=== PATIENT | male | born 1950 | race Caucasian/White ===

== ENCOUNTER 2017-08-29 07:23 | Day surgery (SDC) | payer BC ==
[~2017-08-29 07:23] MED LIST: Acetaminophen TAB* 325 MG PO PRN; Buffered Lidocaine 0.9% SYRIN* 5 ML/SYR SYRINGE INTRADERM ONE
[2017-08-29] MEDS ORDERED: Midazolam* 1 MG/ML 2 ML VIAL (2 MG) ONE ×2 (09:32→09:37)
[2017-08-29 10:14] VITALS: BP 119/65
[2017-08-29] MEDS ORDERED: Phenylephrine 2.5% OPTH.SOL* 2 ML BTL ONE (15:00)
[2017-08-29] MEDS ORDERED: Neomycin/Polymy/Dex OPTH.SUSP* MAXITROL 0.1% 5 ML ONE (15:00)
[2017-08-29] MEDS ORDERED: Ketorolac 0.5% OPHTH (NF) 0.5 % 5 ML BTL ONE (15:00)
[2017-08-29] MEDS ORDERED: Lidocaine 2% EPI 1:200000 MPF* 20 ML VIAL ONE (15:00)
[2017-08-29] MEDS ORDERED: Lidocaine 1% MPF* 2 ML VIAL ONE (15:00)
[2017-08-29] MEDS ORDERED: Cyclopentolate 1% OPTH.SOL* 2 ML BTL ONE (15:00)
[2017-08-29] MEDS ORDERED: Buffered Lidocaine 0.9% SYRIN* 5 ML/SYR SYRINGE ONE (15:00)
[2017-08-29] MEDS ORDERED: Povidone Iodine 5% OPTH* 30 ML BTL ONE (15:00)
[2017-08-29] MEDS ORDERED: Proparacaine 0.5% OPHTH.SOL* 15 ML BTL ONE (15:00)
[2017-08-29] MEDS ORDERED: acetaZOLAMIDE TAB* 250 MG ONE (15:00)
--- NOTE | 2017-08-30 01:30 | OP ---
DATE OF OPERATION: 08/29/17 [facility] DATE OF : 46 SURGEON: Rosalino Tate M.D. PREOPERATIVE DIAGNOSIS: Cataract, right eye. POSTOPERATIVE DIAGNOSIS: Cataract, right eye. OPERATIVE PROCEDURE: Phacoemulsification, right eye with IOL. DESCRIPTION OF PROCEDURE: The patient was brought to the operating room after being given 1/2% Alcaine with epinephrine drops in the preoperative area. The eye was prepped and draped in the usual sterile fashion. Sterile drape and eyelid speculum were placed. Again, topical 1/2% Alcaine with epinephrine was given. A paracentesis incision was made at the 9 o'clock position with the No.75 blade. Clear cornea incision 2.2 x 2.2-mm was created at the 12 o'clock position starting at the anterior limbus using the 2.2-mm keratome. The anterior chamber was irrigated with 0.4 mL of 1% non-preservative intracameral lidocaine and filled with DisCoVisc. A capsulorrhexis was completed using the cystotome and the Utrata forceps. Hydrodissection was performed with balanced salt solution. The lens nucleus was removed with the Phacoemulsification handpiece without incident. Cortex was removed with the irrigation-aspiration handpiece. The capsular bag was re-inflated using DisCoVisc and an [id number] implant was inserted with the shooter. The irrigation-aspiration handpiece was used to remove all residual DisCoVisc. The eye was refilled with balanced salt solution and the wound checked and found to be watertight. Topical Maxitrol drops were given. [id number]/[facility] #: [id number] MTDD
== END 2017-08-29 10:09 | disposition home or self-care (01) ==
LOC: OREAST 07:23
PROVIDERS: ATTEND Specialist
DX: H25.11 Age-related nuclear cataract, right eye (principal); H04.123 Dry eye syndrome of bilateral lacrimal glands; I25.10 Atherosclerotic heart disease of native coronary artery without angina pectoris; Z95.5 Presence of coronary angioplasty implant and graft; I10 Essential (primary) hypertension; E78.5 Hyperlipidemia, unspecified; M54.5 Low back pain; Z79.899 Other long term (current) drug therapy; Z85.72 Personal history of non-Hodgkin lymphomas
CPT/HCPCS: A9270-GY; J2250; V2632

== ENCOUNTER → 2017-09-12 09:06 | Day surgery (SDC) | payer BC ==
[~2017-09-12 09:06] MED LIST changes: -Acetaminophen TAB* 325 MG PO PRN; +Buffered Lidocaine 0.9% SYRIN* 5 ML/SYR SYRINGE ONE; +Cyclopentolate 1% OPTH.SOL* 2 ML BTL ONE; +Ketorolac 0.5% OPHTH (NF) 0.5 % 5 ML BTL ONE; +Lidocaine 1% MPF* 2 ML VIAL ONE; +Lidocaine 2% EPI 1:200000 MPF* 20 ML VIAL ONE; +Lidocaine 2% PF * 5 ML VIAL ONE; +Neomycin/Polymy/Dex OPTH.SUSP* MAXITROL 0.1% 5 ML ONE; +Phenylephrine 2.5% OPTH.SOL* 2 ML BTL ONE; +Povidone Iodine 5% OPTH* 30 ML BTL ONE; +Proparacaine 0.5% OPHTH.SOL* 15 ML BTL ONE; +Propofol* 10 MG/ML 20 ML BTL IV PUSH ONE; +acetaZOLAMIDE TAB* 250 MG ONE
[2017-09-12 12:11] VITALS: BP 127/70
--- NOTE | 2017-09-13 04:35 | OP ---
DATE OF OPERATION: 09/12/17 [facility] DATE OF : 46 SURGEON: Rosalino Tate M.D. PREOPERATIVE DIAGNOSIS: Cataract, left eye. POSTOPERATIVE DIAGNOSIS: Cataract, left eye. OPERATIVE PROCEDURE: Extracapsular cataract extraction with intraocular lens implant, left eye. DESCRIPTION OF PROCEDURE: The patient was brought to the operating room after being given 1/2% Alcaine with epinephrine drops in the preoperative area. The eye was prepped and draped in the usual sterile fashion. Sterile drape and eyelid speculum were placed. Again, topical 1/2% Alcaine with epinephrine was given. A paracentesis incision was made at the 3 o'clock position with the No.75 blade. Clear cornea incision 2.2 x 2.2-mm was created at the 6 o'clock position starting at the anterior limbus using the 2.2-mm keratome. The anterior chamber was irrigated with 0.4 mL of 1% non-preservative intracameral lidocaine and filled with DisCoVisc. A capsulorrhexis was completed using the cystotome and the Utrata forceps. Hydrodissection was performed with balanced salt solution. The lens nucleus was removed with the Phacoemulsification handpiece without incident. Cortex was removed with the irrigation-aspiration handpiece. The capsular bag was re-inflated using DisCoVisc and an [id number] implant was inserted with the shooter. The irrigation-aspiration handpiece was used to remove all residual DisCoVisc. The eye was refilled with balanced salt solution and the wound checked and found to be watertight. Topical Maxitrol drops were given. [id number]/[facility] #: [id number] [facility]
== END | disposition home or self-care (01) ==
LOC: OREAST 09:06
PROVIDERS: ATTEND Specialist
DX: H25.12 Age-related nuclear cataract, left eye (principal); I10 Essential (primary) hypertension; E78.00 Pure hypercholesterolemia, unspecified; G89.29 Other chronic pain; M54.9 Dorsalgia, unspecified
CPT/HCPCS: A9270-GY; J2704; V2632

== ENCOUNTER 2017-12-05 10:41 | Day surgery (SDC) | payer BC ==
[~2017-12-05 10:41] MED LIST changes: -Buffered Lidocaine 0.9% SYRIN* 5 ML/SYR SYRINGE ONE; -Cyclopentolate 1% OPTH.SOL* 2 ML BTL ONE; -Ketorolac 0.5% OPHTH (NF) 0.5 % 5 ML BTL ONE; -Lidocaine 1% MPF* 2 ML VIAL ONE; -Lidocaine 2% EPI 1:200000 MPF* 20 ML VIAL ONE; -Lidocaine 2% PF * 5 ML VIAL ONE; -Neomycin/Polymy/Dex OPTH.SUSP* MAXITROL 0.1% 5 ML ONE; -Phenylephrine 2.5% OPTH.SOL* 2 ML BTL ONE; -Povidone Iodine 5% OPTH* 30 ML BTL ONE; -Proparacaine 0.5% OPHTH.SOL* 15 ML BTL ONE; -Propofol* 10 MG/ML 20 ML BTL IV PUSH ONE; -acetaZOLAMIDE TAB* 250 MG ONE
[2017-12-05] MEDS ORDERED: Buffered Lidocaine 0.9% SYRIN* 5 ML/SYR SYRINGE ONE (11:09)
[2017-12-05] MEDS ORDERED: Clindamycin 900 MG IVPREMIX(* 900 MG/50 ML SDV IV ONE (11:09)
[2017-12-05] MEDS ORDERED: Lidocaine 1% INJ* 10 MG/ML 30 ML SDV ONE (11:21)
[2017-12-05] MEDS ORDERED: Gentamicin ADULT (*) 40 MG/ML VIAL ONE (11:21)
[2017-12-05] MEDS ORDERED: Bacitracin IV* 50,000 UNITS INJ ONE (11:22)
[2017-12-05] MEDS ORDERED: Vancomycin(*) 1,000 MG VIAL ONE (11:22)
[2017-12-05] MEDS ORDERED: ceFAZolin 1 GM VIAL(*) ONE (11:22)
[2017-12-05] MEDS ORDERED: Bupivacaine 0.25% SDV* 30 ML ONE (11:22)
[2017-12-05] MEDS ORDERED: fentaNYL* 50 MCG/ML 2 ML VIAL (100 MCG VIAL) ONE (11:41)
[2017-12-05] MEDS ORDERED: Midazolam* 1 MG/ML 2 ML VIAL (2 MG) ONE (11:41)
[2017-12-05] MEDS ORDERED: Ciprofloxacin 400MG IVPREMIX(* 400 MG/200 ML BAG ONE (11:42)
[2017-12-05] MEDS ORDERED: Propofol* 10 MG/ML 20 ML BTL IV PUSH ONE (12:41)
[2017-12-05] MEDS ORDERED: Phenylephrine INJ* 10 MG/ML 1 ML VIAL (10 MG) ONE (12:52)
[2017-12-05] MEDS ORDERED: Naloxone* 0.4 MG/ML 1 ML VIAL IV PRN (14:37)
[2017-12-05] MEDS ORDERED: fentaNYL* 50 MCG/ML 2 ML VIAL (100 MCG VIAL) IV PRN (14:37)
[2017-12-05 14:49] VITALS: BP 105/65
--- NOTE | 2017-12-05 16:37 | RAD ---
INDICATION: Dorsal column stimulator removal COMPARISON: None FINDINGS: 5.3 seconds of fluoroscopy were provided for the anesthesiology department. Fluoroscopic spot imaging of the spine were obtained for operative control. CPT II Codes: 6045F (fluoro time doc)
--- NOTE | 2017-12-06 10:50 | OP ---
DATE OF OPERATION: 12/05/17 [facility] DATE OF : 46 SURGEON: Ari Martínez MD. PARADI TENDER: None. PRE-OP DIAGNOSIS: Failed back syndrome. POST-OP DIAGNOSIS: Failed back syndrome. OPERATIVE PROCEDURE: Removal of dorsal column stimulator IPG, leads, and anchors. ESTIMATED BLOOD LOSS: Less than 50 cc. FLUIDS: Lactated Ringer's 850 cc of. SPECIMENS: Dorsal column stimulator IPG, leads, and anchors. 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 The patient underwent permanent dorsal column stimulator placement approximately 2 years ago. Initially had good symptomatic relief with this stimulator; however, it stopped working after about a year to a year and a half. He underwent more surgery back in September 2017 for an L3-4 extraforaminal disk herniation. He has been doing better, and since he is not using the dorsal column stimulator, had wanted it to be removed. He was also having pain at the midline incision where the anchors were placed. I had a chance to discuss with the patient the risks, the benefits, and alternatives to therapy and talked to him about the risks of infection, bleeding with surgery, and informed consent was obtained. DESCRIPTION OF PROCEDURE: The patient was brought to the operating suite, placed prone on the operating room table. His back was prepped and draped in the usual sterile fashion. I anesthetized the skin and subcutaneous tissues over the midline area where the leads and anchors were placed as well as over the IPG pocket with 1% lidocaine mixed with 0.25% Marcaine. A 15 skin blade was used to incise the skin overlying the IPG in the area of the prior incision. I dissected down using a 15 scalpel blade and entered the pocket. I was able to use blunt dissection to free up the IPG and it was removed from the pocket. I cut the leads going into the IPG and placed it on the back table. Hemostasis was obtained with electrocautery. The wound was packed with irrigant soaked sponges. I then made an incision over the midline using a 15 scalpel blade. I dissected down using the scalpel and electrocautery to identify the two anchors. The anchoring sutures were cut on both anchors and the leads and anchors were removed in their entirety. Fluoroscopy was then used to confirm removal of all components of the dorsal column stimulator system including the leads, anchors, and IPG. There was a quite a bit of scar tissue over where the anchors had been placed and I used electrocautery to remove as much scar tissue that I could because the patient was concerned about the bump that he was feeling through his skin in his back when he sat in his chair. The wound was then irrigated copiously with irrigant. Electrocautery was used for hemostasis. I then focused on closing the pocket, the space within the pocket was closed using interrupted 2-0 Polysorb sutures. The deep tissues were then closed using interrupted 2-0 Polysorb sutures followed by interrupted 3-0 Polysorb sutures in a more superficial closure. A 4-0 Polysorb subcuticular stitch was used to close the skin. I then confirmed hemostasis in the midline incision using electrocautery, irrigated the wound copiously, and closed the deep tissues with 2-0 Polysorb suture followed by interrupted 3-0 Polysorb suture more superficially. A running 4-0 Polysorb suture was used to close the skin. The wound was infiltrated with 1% lidocaine mixed with 0.25% Marcaine and I infiltrated the IPG incision with 1% lidocaine and 0.25% Marcaine as well. DermaFlex was used over both incisions followed by Steri- Strips and sterile dressings were applied. The patient will follow up in the office in 10 to 14 days for followup. [id number]/[facility] #: [id number] [place]
== END 2017-12-05 14:50 | disposition home or self-care (01) ==
LOC: OR 10:41
PROVIDERS: ATTEND Anesthesiology Pain Medicine
DX: T85.840A Pain due to nervous system prosthetic devices, implants and grafts, initial encounter (principal); Y83.1 Surgical operation with implant of artificial internal device as the cause of abnormal reaction of the patient, or of later complication, without mention of misadventure at the time of the procedure; M96.1 Postlaminectomy syndrome, not elsewhere classified; I25.10 Atherosclerotic heart disease of native coronary artery without angina pectoris; Z95.5 Presence of coronary angioplasty implant and graft; I25.2 Old myocardial infarction; Z85.72 Personal history of non-Hodgkin lymphomas; F32.9 Major depressive disorder, single episode, unspecified
CPT/HCPCS: 77003; 88300; A9270-GY; J0690; J0744; J1580; J2250; J2704; J3010; J3370

== ENCOUNTER → 2019-05-16 12:56 | Emergency (ER) | payer BC, MEDICARE ==
--- NOTE | 2019-05-16 13:43 | ED ---
HPI Chest Pain - HPI Summary HPI Summary: The patient is a 69 y/o M presenting to [facility] accompanied by with a chief complaint of sudden onset CP at 1145 this morning. He reports that the pain is anterior bilaterally and doesnt radiate. He also took his BP at the time, and it was 180/95, but his usual SBP is 130. He states that there were not any palpitations, weakness, or diaphoresis present at the time, but he did take ASA and one NTG, which caused him to experience some dizziness (resolved), although the medications helped decreased his SBP to 135 and alleviate the CP. Currently , his dull pain is rated 2/10 in severity. He states that he isnt sure if the pain is the same as when he had an LA five years ago, but he also didnt have any palpitations, weakness, or diaphoresis at that time either. He denies any fever, chills, erythema of eyes, sore throat, pain with breathing, SOB, cough, abdominal pain, N/V, dysuria, hematuria, myalgia, edema, or rash. He notes that he had a steroid injection for pain three days ago, and he has previously noticed that the shots elevate his BP. Last stress test was a few years ago. Takes one baby ASA every day. PMHx: angina, CAD, HTN, LA 5 years ago with stent placement, asthma, GERD, enlarged prostate, lymphosarcoma, multiple back surgeries, multiple knee surgeries. Nonsmoker, no EtOH, no substance use. PCP is Dr. Argueta. Tool Distributor is Dr. Contreras. - History of Current Complaint Chief Complaint: EDChestPainROMI Time Seen by Provider: 05/16/19 13:32 Hx Obtained From: Patient Onset/Duration: Started Hours Ago - at 1145, Still Present Timing: Lasting Hours Initial Severity: Moderate Current Severity: Mild Pain Intensity: 2 Pain Scale Used: 0-10 Numeric Chest Pain Location: Left Anterior, Right Anterior Chest Pain Radiates: No Character: Dull/Aching Aggravating Factor(s): Nothing Alleviating Factor(s): Other: - ASA, NTG Associated Signs and Symptoms: Positive: Chest Pain, Dizziness - resolved, Other : - NEGATIVE: erythema of eyes, sore throat, pain with breathing, dysuria, hematuria, myalgia, rash. Negative: Weakness, Shortness of Breath, Fever, Chills, Diaphoresis, Nausea, Palpitations, Cough, Abdominal Pain, Vomiting, Edema - Allergy/Home Medications Allergies/Adverse Reactions: Allergies Allergy/AdvReac Type Severity Reaction Status Date / Time amoxicillin Allergy Mild Rash Verified 05/16/19 13:04 TEGADERM DRESSING Allergy Severe Blisters Uncoded 05/16/19 13:04 eggplant Allergy Intermediate Nausea Uncoded 05/16/19 13:04 ENVIRONMENTAL/HAYFEVER Allergy Intermediate WHEEZE Uncoded 05/16/19 13:04 Home Medications: Home Medications Garlic [Odorless Garlic] 300 mg PO QAM 05/16/19 [History Confirmed 05/16/19] Multivitamins/Minerals TAB* [Theragran/minerals TAB*] 1 tab PO DAILY 05/16/19 [ History Confirmed 05/16/19] Nitroglycerin TAB 0.4 MG* 0.4 mg SL Q5M PRN 05/16/19 [History Confirmed 05/16/19 ] Ubidecarenone [Co Q-10] 100 mg PO BID 05/16/19 [History Confirmed 05/16/19] PMH/Surg Hx/FS Hx/Imm Hx Endocrine/Hematology History: Reports: Hx Anticoagulant Therapy - Presently as of 12/25/14 visit he is on anticoagulant therapy Denies: Hx Diabetes, Hx Anemia Cardiovascular History: Reports: Hx Angina - NONE SINCE HAVING STENT PLACED, Hx Coronary Artery Disease - NO MEDS, Hx Hypertension - CONTROL WITH MEDS, Other Cardiovascular Problems/Disorders - LA with stent placement in April 2014 Denies: Hx Pacemaker/ICD Respiratory History: Reports: Hx Asthma - A CHILD Denies: Hx Chronic Obstructive Pulmonary Disease (COPD) GI History: Reports: Hx Gastroesophageal Reflux Disease - OCCASIONALLY ACID REFLUX, NO MEDS Denies: Hx Jaundice History: Reports: Hx Benign Prostatic Hyperplasia, Other Problems/ Disorders - ENLARGED PROSTATE Denies: Hx Renal Disease Musculoskeletal History: Reports: Hx Arthritis, Hx Back Problems, Hx Osteoporosis, Other Musculoskeletal History - Multiple knee surgeries, back surgery "mini-discectomy" 09/2017 Sensory History: Reports: Hx Cataracts - cataract surgery 09/2017, Hx Contacts or Glasses - occassionally for driving, Hx Hearing Aid - right ear Opthamlomology History: Reports: Hx Cataracts - cataract surgery 09/2017, Hx Contacts or Glasses - occassionally for driving Neurological History: Reports: Hx Migraine - 1-2 TIMES A YEAR, Other Neuro Impairments/Disorders - PAIN CLINIC PATIENT Psychiatric History: Reports: Hx Depression - R/T PAIN Denies: Hx Panic Disorder - Cancer History Cancer Type, Location and Year: LYMPHOSACROMA - A CHILD Hx Chemotherapy: No Hx Radiation Therapy: Yes - Surgical History Surgery Procedure, Year, and Place: 1953 RIGHT AXILLA AND ELBOW LYMPH NODE REMOVAL- [facility] [place]. 1974 LEFT KNEE MEDIAL MENISCECTOMY- [place]. [id number] 4 ARTHROSCOPIC LEFT KNEE SURGERIES- [facility]. 2002 LIGATION AND STRIPPING SHORT SAPHENOUS VEIN - . 2010 L4-L5 LAMINECTOMY- [facility]. 2011 L4- L5-S1 DOUBLE FUSION- [facility]. 2012 L4-L5-S1 DOUBLE FUSION REVISION- [facility]. 09/30 - L3-4 DISCECTOMY. 05/14/14 cardiac STENT PLAC[place] [facility] [place]. 2014 trial dorsal column stimulator. 10/2015 dorsal column stimulator placed. REMOVED BY DR REBOLLEDO 10/2017. TONSILECTOMY - as a child. ARY CATARACTS Hx Anesthesia Reactions: No Infectious Disease History: No Infectious Disease History: Reports: Hx Shingles, History Other Infectious Disease - LYME DISEASE Denies: Traveled Outside the [place] in Last 30 Days - Family History Known Family History: Positive: Other Family History: Mother CVA, Father LA - Social History Alcohol Use: None Alcohol Amount: 2 DRINKS/MONTH Hx Substance Use: No Substance Use Type: Reports: None Substance Use Comment - Amount & Last Used: Medical Marijuana Hx Tobacco Use: No Smoking Status (MU): Never Smoked Tobacco Have You Smoked in the Last Year: No Review of Systems Negative: Fever, Chills, Skin Diaphoresis Negative: Erythema Negative: Sore Throat Positive: Chest Pain - bilateral. Negative: Palpitations Negative: Shortness Of Breath - or pain with breathing, Cough Negative: Abdominal Pain, Vomiting, Nausea Negative: dysuria, hematuria Negative: Myalgia, Edema Negative: Rash Neurological: Other - dizziness (resolved) Negative: Weakness All Other Systems Reviewed And Are Negative: Yes Physical Exam - Summary Physical Exam Summary: Constitutional: Well-developed, Well-nourished, Alert. (-) Distressed Skin: Warm, Dry HENT: Normocephalic; Atraumatic Eyes: Conjunctiva normal Neck: Musculoskeletal ROM normal neck. (-) JVD, (-) Stridor, (-) Tracheal deviation Cardio: Rhythm regular, rate normal, Heart sounds normal; Intact distal pulses; The pedal pulses are 2+ and symmetric. Radial pulses are 2+ and symmetric. (-) Murmur Pulmonary/Chest wall: Effort normal. (-) Respiratory distress, (-) Wheezes, (-) Rales Abd: Soft, (-) tenderness, (-) Distension, (-) Guarding, (-) Rebound Musculoskeletal: (-) Edema Lymph: (-) Cervical adenopathy Neuro: Alert, Oriented x3 Psych: Mood and affect Normal Triage Information Reviewed: Yes Vital Signs On Initial Exam: Initial Vitals Temp Pulse Resp BP Pulse Ox 98.0 F 83 18 167/93 100 05/16/19 12:58 05/16/19 12:58 05/16/19 12:58 05/16/19 12:58 05/16/19 12:58 Vital Signs Reviewed: Yes Diagnostics - Vital Signs Vital Signs Temp Pulse Resp BP Pulse Ox 05/16/19 12:58 98.0 F 83 18 167/93 100 - Laboratory Result Diagrams: 05/16/19 13:29 05/16/19 13:29 Lab Statement: Any lab studies that have been ordered have been reviewed, and results considered in the medical decision making process. - Radiology CXR Radiology Interpretation Completed By: Radiologist Summary of Radiographic Findings: Impression: No active cardiopulmonary disease. ED physician has reviewed this radiology report. - EKG 1257 Cardiac Rate: NL - 82 bpm EKG Rhythm: Sinus Rhythm Summary of EKG Findings: NSR at 82 bpm. No STEMI. Re-Evaluation - Re-Evaluation First Eval Re-Evaluation Time: 14:50 Comment: Lab work results were discussed. Second Eval Re-Evaluation Time: 16:45 Comment: I discussed second troponin results and consult with Dr. Faulkner. The patient would like to refrain from staying in the hospital tonight. He understands that this would be against medical advice. Third Eval Re-Evaluation Time: 17:30 Comment: Patient signed AMA form. We discussed all risks, including my concerns for unstable angina and partial blockage of coronary artery. He agrees with leaving AMA and understands all risks. Chest Pain Course/Dx - Course Course Of Treatment: Patient is a 69 y/o M with cc of sudden onset bilaterally anterior CP that doesnt radiate starting at 1145 this morning with relief after using ASA and NTG, which also helped BP decrease. NTG made him slightly dizzy, but that has resolved. Denies palpitations, weakness, pain with breathing , SOB, or N/V. PMHx: angina, CAD, HTN, LA 5 years ago with stent placement. Upon physical exam, the patient exhibits no acute abnormalities. Blood work reveals RBCs of 4.13, Hgb of 13.1, Hct of 38, MCH of 32, BUN of 33, and BUN/ Creatinine of 40.7. First troponin is 0.00. EKG at 1257 reveals NSR at 82 bpm without any acute changes. Chest x-ray impression is negative for active cardiopulmonary disease. I spoke with Dr. Kim, hospitalist, concerning the patients case, and she is aware for possible admission. I also spoke with Dr. Faulkner, credit rating checker, and he recommends that the patient be monitored over night with admission, and he can be discharged in the morning if hes ambulatory. Upon re-eval, the patient would like to wait for the second troponin. Second troponin is 0.01. He also would not like to stay in the hospital, so he will leave AMA. I discussed my concerns for unstable angina and partial blockage of the coronary artery. He will follow up with his credit rating checker for an outpatient stress test. He will return to the ER if he changes his mind. Patient signed AMA at 1730. He is aware of all of the risks for leaving against medical advice which may include disability and . Patient agrees with discharge plan. He is diagnosed with chest pain, unspecified. - Diagnoses Provider Diagnoses: Chest pain, unspecified, Left against medical advice - Provider Notifications Discussed Care Of Patient With: Agustin Faulkner - cardiology Time Discussed With Above Provider: 16:38 Instructed by Provider To: Other - At 1430, I spoke with Dr. Kim, hospitalist, concerning the patients case, and she is aware for possible admission. I spoke Dr. Faulkner and he recommends that the patient be monitored over night with admission, and he can be discharged in the morning if hes ambulatory. If he decides to decline admission, the patient will leave AMA. Discharge - Sign-Out/Discharge Documenting (check all that apply): Patient Departure - Patient will leave AMA. Patient Received Moderate/Deep Sedation with Procedure: No - Discharge Plan Condition: Stable Disposition: AGAINST MEDICAL ADVICE Patient Education Materials: Chest Pain (DC), Against Medical Advice (ED) Referrals: Reba Argueta MD [Primary Care Provider] - 3 Days Agustin Faulkner DO [Medical Doctor] - 3 Days Additional Instructions: Follow up with your primary care provider and credit rating checker in 2-3 days for a stress test. RETURN TO THE EMERGENCY DEPARTMENT FOR ANY NEW OR WORSENING SYMPTOMS. - Billing Disposition and Condition Condition: STABLE Disposition: Against Medical Advice - Attestation Statements Document Initiated by Scribe: Yes Documenting Scribe: Anita Marr Provider For Whom Scribe is Documenting (Include Credential): Dr. Jonh Lew MD Scribe Attestation: Anita Turner scribed for Dr. Jonh Lew MD on 05/16/19 at 1745. Status of Scribe Document: Ready
[2019-05-16 13:44] LABS: ABS Lymphocytes 1.4 10^3/ul (1.0-4.8); ABS Monocytes 0.7 10^3/ul (0-0.8); ABS Neutrophils 6.2 10^3/ul (1.5-7.7); Hematocrit 38 % (42-52); Hemoglobin 13.1 g/dL (14.0-18.0); Lymphocyte % 17.4 %; Mean Corpuscular HGB Conc 35 g/dL (31-36); Mean Corpuscular Hemoglobin 32 pg (27-31); Mean Corpuscular Volume 92 fL (80-94); Mean Platelet Volume 8.6 fL (7.4-10.4); Platelet Count 268 10^3/uL (150-450); Red Blood Count 4.13 10^6 /uL (4.18-5.48); Red Cell Distribution Width 14 % (10-15); White Blood Count 8.3 10^3/uL (3.5-10.8)
[2019-05-16 13:54] LABS: INR 0.96 (0.82-1.09)
[2019-05-16 14:06] LABS: Albumin 4.5 g/dL (3.2-5.2); BUN/Creatinine Ratio 40.7 (8-20); Calcium 9.6 mg/dL (8.6-10.3); EGFR African American 113.7 (>60); EGFR Non-African American 93.9 (>60); Globulin 2.3 g/dL (2-4); Potassium 4.7 mmol/L (3.5-5.0); Total Bilirubin 0.5 mg/dL (0.2-1.0); Total Protein 6.8 g/dL (6.4-8.9)
[2019-05-16 15:06] VITALS: BP 151/76
== END | disposition left against medical advice (07) ==
LOC: ED 12:56
DX: R07.9 Chest pain, unspecified (principal); Z53.21 Procedure and treatment not carried out due to patient leaving prior to being seen by health care provider; Z88.0 Allergy status to penicillin; Z91.048 Other nonmedicinal substance allergy status; Z79.899 Other long term (current) drug therapy; I25.119 Atherosclerotic heart disease of native coronary artery with unspecified angina pectoris; I10 Essential (primary) hypertension; J45.909 Unspecified asthma, uncomplicated; N40.0 Benign prostatic hyperplasia without lower urinary tract symptoms
CPT/HCPCS: 36415; 71045; 80053; 84484; 85025; 85610; 93005; 99283

== ENCOUNTER 2024-06-22 21:22 | Observation (INO) ==
[2024-06-22] MEDS ORDERED: Ondansetron 4 mg VIAL 2 MG/ML 2 ml VIAL ONE (21:35)
[2024-06-22] MEDS: Ondansetron 4 mg VIAL 2 MG/ML 2 ml VIAL IV ONE (21:59)
[2024-06-22 22:01] LABS: ABS Basophils 0.1 10^3/uL (0.0-0.1); ABS Eosinophils 0.1 10^3/uL (0.0-0.5); ABS Lymphocytes 1.9 10^3/uL (1.0-4.8); ABS Monocytes 0.8 10^3/uL (0.0-1.1); ABS Neutrophils 6.8 10^3/uL (1.5-7.6); ABS Nucleated RBC 0.02 10^3/ul; Eosinophil % 0.6 %; Hematocrit 28.1 % (38-53); Hemoglobin 9.4 g/dL (13.2-16.3); Lymphocyte % 19.9 %; Mean Corpuscular Hemoglobin 30.3 pg (27-33); Mean Corpuscular Hgb Conc 33.5 g/dL (31-36); Mean Corpuscular Volume 90.4 fL (80-97); Mean Platelet Volume 7.6 fL (7.5-11.2); Nucleated Red Blood Cells % 0.2 %/100WBC (0.0-0.8); Platelet Count 505 10^3/uL (150-450); Red Blood Count 3.11 10^6/uL (4.06-5.63); Red Cell Distribution Width 14.4 % (12-17); White Blood Count 9.7 10^3/uL (3.6-10.2)
[2024-06-22] MEDS: NS 0.9% 1000 ml BAG 1,000 ML IV ONE (22:05)
[2024-06-22 22:08] LABS: INR 1.14 (0.85-1.14)
[2024-06-22 22:54] LABS: Albumin 3.8 g/dL (3.2-5.2); Albumin/Globulin Ratio 1.4 (1-3); Creatinine, Serum 0.67 mg/dL (0.67-1.17); Globulin 2.7 g/dL (2-4); Potassium 4.9 mmol/L (3.5-5.0); Total Bilirubin 0.3 mg/dL (0.2-1.0); Total Protein 6.5 g/dL (6.4-8.9); eGFR CKD-EPI 96.8 (>60)
[2024-06-22] MEDS: Charcoal ACTIVATED 50 GM/240 ML BTL PO ONE (23:16)
[2024-06-22 23:33] LABS: High Sensitivity Troponin 1 Hr 59 pg/mL (<20)
[2024-06-23 00:50] LABS: High Sensitivity Troponin 3 Hr 68 pg/mL (<20)
[2024-06-23] MEDS: Ondansetron 4 mg VIAL 2 MG/ML 2 ml VIAL IV ONE (02:24)
[2024-06-23] MEDS: Morphine 2 MG/ML SYRINGE IV ONE (04:08)
[2024-06-23] MEDS: Droperidol 5 MG/2 ML 2 ML VIAL IV ONE (04:08)
[2024-06-23] MEDS: NS 0.9% 1000 ml BAG 1,000 ML IV SCH (04:09)
[2024-06-23 04:27] LABS: INR 1.13 (0.85-1.14)
[2024-06-23 04:58] LABS: ALT 14 U/L (7-52); Albumin 3.6 g/dL (3.2-5.2); Albumin/Globulin Ratio 1.4 (1-3); Alkaline Phosphatase 109 U/L (35-149); Amylase 49 U/L (29-103); Anion Gap 12 mmol/L (2-16); Blood Urea Nitrogen 15 mg/dL (6-24); CO2 Carbon Dioxide 22 mmol/L (22-32); Calcium 8.5 mg/dL (8.6-10.3); Chloride 103 mmol/L (101-111); Creatinine, Serum 0.62 mg/dL (0.67-1.17); Globulin 2.6 g/dL (2-4); Glucose 106 mg/dL (70-100); Lipase 14 U/L (11.0-82.0); Sodium 137 mmol/L (135-145); Total Bilirubin 0.4 mg/dL (0.2-1.0); Total Protein 6.2 g/dL (6.4-8.9); eGFR CKD-EPI 99.1 (>60)
[2024-06-23] MEDS ORDERED: Sulfur Hexaflouride MICROSPHR 25 MG VIAL IV PRN (05:47)
[2024-06-23] MEDS ORDERED: oxyCODONE 5 mg/5 ml ORAL.SOLN UDC PO PRN (06:15)
[2024-06-23] MEDS: Charcoal ACTIVATED 25 GM/120 ML BTL PO ONE (06:23)
[2024-06-23] MEDS ORDERED: Heparin 5000 UNITS/ML 1 mL VIAL SUBCUT SCH (08:00)
[2024-06-23 08:55] VITALS: BP 122/63
[2024-06-23] MEDS ORDERED: PREGABALIN 20 MG/ML PO SCH (21:00)
== END 2024-06-23 08:55 | disposition left against medical advice (07) ==
LOC: ED 21:22 → EDHOLD 21:22 → SUATTDRO 06-23 05:08 → EDHOLD 06-23 08:54
PROVIDERS: ADMIT Internal Medicine; ATTEND Internal Medicine

== ENCOUNTER 2024-07-12 15:52 | Observation (INO) ==
[2024-07-12 16:14] LABS: ABS Basophils 0.1 10^3/uL (0.0-0.1); ABS Eosinophils 0.2 10^3/uL (0.0-0.5); ABS Lymphocytes 2.6 10^3/uL (1.0-4.8); ABS Monocytes 0.8 10^3/uL (0.0-1.1); ABS Neutrophils 5.7 10^3/uL (1.5-7.6); ABS Nucleated RBC 0.01 10^3/ul; Eosinophil % 1.6 %; Hematocrit 31.2 % (38-53); Hemoglobin 10.2 g/dL (13.2-16.3); Lymphocyte % 28.2 %; Mean Corpuscular Hemoglobin 29.2 pg (27-33); Mean Corpuscular Hgb Conc 32.8 g/dL (31-36); Mean Corpuscular Volume 89.1 fL (80-97); Mean Platelet Volume 7.8 fL (7.5-11.2); Nucleated Red Blood Cells % 0.1 %/100WBC (0.0-0.8); Platelet Count 364 10^3/uL (150-450); Red Cell Distribution Width 14.5 % (12-17); White Blood Count 9.3 10^3/uL (3.6-10.2)
[2024-07-12 16:20] LABS: INR 1.07 (0.85-1.14)
[2024-07-12 17:03] LABS: Albumin 3.7 g/dL (3.2-5.2); Albumin/Globulin Ratio 1.6 (1-3); Calcium 8.6 mg/dL (8.6-10.3); Creatinine, Serum 0.74 mg/dL (0.67-1.17); Globulin 2.3 g/dL (2-4); Potassium 4.5 mmol/L (3.5-5.0); Total Bilirubin 0.5 mg/dL (0.2-1.0); eGFR CKD-EPI 93.9 (>60)
[2024-07-12 17:54] LABS: High Sensitivity Troponin 1 Hr 7 pg/mL (<20)
[2024-07-12 18:44] LABS: Urine Appearance Clear; Urine Bilirubin Negative (Negative); Urine Blood Negative (Negative); Urine Color Light-Yellow; Urine Glucose Negative (Negative); Urine Ketones Negative (Negative); Urine Nitrite Negative (Negative); Urine Protein Negative (Negative); Urine Specific Gravity 1.021 (1.002-1.030); Urine Urobilinogen Negative (Negative)
[2024-07-12] MEDS: Iohexol 350 (CONTRAST) 500 ML MDV IV ONE (19:29)
[2024-07-12 19:33] LABS: High Sensitivity Troponin 3 Hr 7 pg/mL (<20)
[2024-07-12] MEDS ORDERED: Sulfur Hexaflouride MICROSPHR 25 MG VIAL IV PRN (20:47)
[2024-07-12 22:26] LABS: High Sensitivity Troponin 1 Hr 6 pg/mL (<20)
[2024-07-12] MEDS ORDERED: oxyCODONE 5 mg/5 ml ORAL.SOLN UDC PO PRN (23:28)
[2024-07-12] MEDS: PREGABALIN 20 MG/ML PO SCH (23:41)
[2024-07-13 06:09] LABS: ABS Basophils 0.1 10^3/uL (0.0-0.1); ABS Eosinophils 0.3 10^3/uL (0.0-0.5); ABS Lymphocytes 2.2 10^3/uL (1.0-4.8); ABS Monocytes 0.7 10^3/uL (0.0-1.1); ABS Neutrophils 4.7 10^3/uL (1.5-7.6); Eosinophil % 3.8 %; Hematocrit 32.4 % (38-53); Hemoglobin 10.7 g/dL (13.2-16.3); Lymphocyte % 27.5 %; Mean Corpuscular Hemoglobin 29.6 pg (27-33); Mean Corpuscular Hgb Conc 33.2 g/dL (31-36); Mean Corpuscular Volume 89.2 fL (80-97); Mean Platelet Volume 7.8 fL (7.5-11.2); Platelet Count 360 10^3/uL (150-450); Red Blood Count 3.63 10^6/uL (4.06-5.63); Red Cell Distribution Width 14.7 % (12-17)
[2024-07-13 06:38] LABS: Anion Gap 8 mmol/L (2-16); Blood Urea Nitrogen 13 mg/dL (6-24); CO2 Carbon Dioxide 27 mmol/L (22-32); Calcium 8.8 mg/dL (8.6-10.3); Chloride 101 mmol/L (101-111); Creatinine, Serum 0.69 mg/dL (0.67-1.17); Glucose 90 mg/dL (70-100); Potassium 4.4 mmol/L (3.5-5.0); Sodium 136 mmol/L (135-145); eGFR CKD-EPI 95.9 (>60)
[2024-07-13 10:21] LABS: Immature Retic Fraction 0.27
[2024-07-13 10:25] LABS: % Iron Saturation 20 % (15-55); .Transferrin 300 mg/dL (203-362); Iron 82 ug/dL (50-212); Total Iron Binding Capacity 420 mcg/dL (250-450); Unsaturated Iron Binding 338 ug/dL
[2024-07-13 10:37] LABS: RBC Retic Count 3.63 10^6/ul (4.06-5.63)
[2024-07-13 10:38] LABS: Corrected Retic Count 0.6 % (0.5-2.2); Hematocrit for Retic CNT 32.4 % (38-53)
[2024-07-13 10:51] LABS: Folate > 20.00 ng/mL (5.90-24.80)
[2024-07-13 10:53] LABS: Vitamin B12 614 pg/mL (180-914)
[2024-07-13 11:47] VITALS: BP 113/64
== END 2024-07-13 12:10 | disposition home or self-care (01) ==
LOC: ED 15:52 → EDHOLD 15:52 → SUATTDRO 20:45 → MEDTELE 22:45
PROVIDERS: ADMIT Internal Medicine; ATTEND Internal Medicine

== ENCOUNTER 2024-07-16 07:35 | Inpatient (IN) ==
[2024-07-16 08:01] LABS: ABS Basophils 0.1 10^3/uL (0.0-0.1); ABS Eosinophils 0.2 10^3/uL (0.0-0.5); ABS Lymphocytes 3.8 10^3/uL (1.0-4.8); ABS Monocytes 0.7 10^3/uL (0.0-1.1); ABS Neutrophils 4.8 10^3/uL (1.5-7.6); Eosinophil % 2.4 %; Hematocrit 29.2 % (38-53); Hemoglobin 9.5 g/dL (13.2-16.3); Lymphocyte % 39.7 %; Mean Corpuscular Hemoglobin 29.3 pg (27-33); Mean Corpuscular Hgb Conc 32.5 g/dL (31-36); Mean Corpuscular Volume 90.2 fL (80-97); Mean Platelet Volume 7.9 fL (7.5-11.2); Platelet Count 362 10^3/uL (150-450); Red Blood Count 3.23 10^6/uL (4.06-5.63); Red Cell Distribution Width 14.9 % (12-17); White Blood Count 9.6 10^3/uL (3.6-10.2)
[2024-07-16] MEDS: NS 0.9% 1000 ml BAG 1,000 ML IV ONE (08:06)
[2024-07-16] MEDS: Prothrombin Complex Conc. DOSE = Units Factor IX (nine) IV SLOW PU ONE (08:11)
[2024-07-16 08:14] LABS: INR 1.77 (0.85-1.14)
[2024-07-16 08:42] LABS: Albumin 3.6 g/dL (3.2-5.2); Albumin/Globulin Ratio 1.6 (1-3); Calcium 8.3 mg/dL (8.6-10.3); Creatinine, Serum 0.82 mg/dL (0.67-1.17); Globulin 2.2 g/dL (2-4); Potassium 4.7 mmol/L (3.5-5.0); Total Bilirubin 0.4 mg/dL (0.2-1.0); Total Protein 5.8 g/dL (6.4-8.9)
[2024-07-16] MEDS: Pantoprazole VIAL 40 MG VIAL IV ONE (08:52)
[2024-07-16 09:38] LABS: Phosphorus 2.9 mg/dL (2.5-5.0)
[2024-07-16] MEDS ORDERED: Ondansetron 4 mg VIAL 2 MG/ML 2 ml VIAL IV PRN (10:15)
[2024-07-16] MEDS: Pantoprazole 80 mg in NS BAG 80 MG/250 ML BAG IV SCH (11:39)
[2024-07-16] MEDS ORDERED: Midazolam 10 mg/10 ml VIAL 1 mg/ml 10 ml VIAL (10 mg) ONE (12:01)
[2024-07-16] MEDS ORDERED: fentaNYL 100 mcg/2 ml 50 MCG/ML VIAL ONE (12:02)
[2024-07-16] MEDS: Erythromycin Lactobionate IV 250 MG in NS 0.9% 100 ml BAG 100 ML IVPB ONE (12:05)
[2024-07-16 12:18] LABS: ABS Basophils 0.1 10^3/uL (0.0-0.1); ABS Eosinophils 0.1 10^3/uL (0.0-0.5); ABS Lymphocytes 1.5 10^3/uL (1.0-4.8); ABS Monocytes 0.6 10^3/uL (0.0-1.1); ABS Neutrophils 6.9 10^3/uL (1.5-7.6); Eosinophil % 0.9 %; Hematocrit 30.1 % (38-53); Hemoglobin 10.4 g/dL (13.2-16.3); Lymphocyte % 16.3 %; Mean Corpuscular Hemoglobin 29.9 pg (27-33); Mean Corpuscular Hgb Conc 34.4 g/dL (31-36); Mean Platelet Volume 8.1 fL (7.5-11.2); Platelet Count 274 10^3/uL (150-450); Red Blood Count 3.46 10^6/uL (4.06-5.63); Red Cell Distribution Width 16.6 % (12-17); White Blood Count 9.1 10^3/uL (3.6-10.2)
[2024-07-16 12:38] LABS: Activated Partial Thrombo Time 30.3 seconds (26.0-38.0); INR 1.35 (0.85-1.14)
[2024-07-16] MEDS: CALCIUM GLUCONATE 1GM/50ML NS 1 GM/50 ML BAG IV ONE (12:44)
[2024-07-16 13:03] LABS: Calcium 8.2 mg/dL (8.6-10.3); Creatinine, Serum 0.6 mg/dL (0.67-1.17); Magnesium 1.9 mg/dL (1.9-2.7); Phosphorus 3.3 mg/dL (2.5-5.0); Potassium 4.4 mmol/L (3.5-5.0)
[2024-07-16] MEDS ORDERED: EPINEPHrine SYR 0.1MG/ML 10 ml SYRINGE IV ONE (16:04)
[2024-07-16 16:30] LABS: ABS Basophils 0.1 10^3/uL (0.0-0.1); ABS Eosinophils 0.1 10^3/uL (0.0-0.5); ABS Lymphocytes 4.2 10^3/uL (1.0-4.8); ABS Monocytes 0.8 10^3/uL (0.0-1.1); Eosinophil % 0.8 %; Hemoglobin 9.6 g/dL (13.2-16.3); Lymphocyte % 37.5 %; Mean Corpuscular Hemoglobin 28.8 pg (27-33); Mean Corpuscular Hgb Conc 33.1 g/dL (31-36); Mean Platelet Volume 8.2 fL (7.5-11.2); Platelet Count 280 10^3/uL (150-450); Red Blood Count 3.34 10^6/uL (4.06-5.63); Red Cell Distribution Width 16.3 % (12-17); White Blood Count 11.1 10^3/uL (3.6-10.2)
[2024-07-16 17:18] LABS: Calcium 8.2 mg/dL (8.6-10.3); Creatinine, Serum 0.61 mg/dL (0.67-1.17); Potassium 4.1 mmol/L (3.5-5.0); eGFR CKD-EPI 99.5 (>60)
[2024-07-16] MEDS ORDERED: HYDROmorphone 1 MG/1 ML SYRINGE IV PRN (18:27)
[2024-07-16] MEDS: Acetaminophen IV 1 GM/100ML 1,000 MG/100 ML BAG IV PRN (20:25)
[2024-07-16] MEDS ORDERED: Pantoprazole VIAL 40 MG VIAL IV SCH (21:00)
[2024-07-16 23:03] LABS: ABS Eosinophils 0.2 10^3/uL (0.0-0.5); ABS Lymphocytes 1.9 10^3/uL (1.0-4.8); ABS Monocytes 0.5 10^3/uL (0.0-1.1); Eosinophil % 2.8 %; Hematocrit 26.5 % (38-53); Hemoglobin 9.1 g/dL (13.2-16.3); Lymphocyte % 28.7 %; Mean Corpuscular Hemoglobin 29.7 pg (27-33); Mean Corpuscular Hgb Conc 34.3 g/dL (31-36); Mean Corpuscular Volume 86.5 fL (80-97); Platelet Count 244 10^3/uL (150-450); Red Blood Count 3.06 10^6/uL (4.06-5.63); Red Cell Distribution Width 16.3 % (12-17); White Blood Count 6.6 10^3/uL (3.6-10.2)
[2024-07-16 23:36] LABS: Calcium 8.2 mg/dL (8.6-10.3); Creatinine, Serum 0.66 mg/dL (0.67-1.17); Potassium 4.2 mmol/L (3.5-5.0); eGFR CKD-EPI 97.2 (>60)
[2024-07-17 05:13] LABS: ABS Basophils 0.1 10^3/uL (0.0-0.1); ABS Eosinophils 0.2 10^3/uL (0.0-0.5); ABS Lymphocytes 1.7 10^3/uL (1.0-4.8); ABS Monocytes 0.5 10^3/uL (0.0-1.1); ABS Neutrophils 3.5 10^3/uL (1.5-7.6); Eosinophil % 3.7 %; Hematocrit 27.5 % (38-53); Hemoglobin 9.2 g/dL (13.2-16.3); Lymphocyte % 28.2 %; Mean Corpuscular Hgb Conc 33.5 g/dL (31-36); Mean Corpuscular Volume 86.4 fL (80-97); Mean Platelet Volume 7.7 fL (7.5-11.2); Platelet Count 256 10^3/uL (150-450); Red Blood Count 3.18 10^6/uL (4.06-5.63); Red Cell Distribution Width 16.1 % (12-17)
[2024-07-17 05:57] LABS: Calcium 8.4 mg/dL (8.6-10.3); Creatinine, Serum 0.67 mg/dL (0.67-1.17); Magnesium 1.9 mg/dL (1.9-2.7); Phosphorus 3.2 mg/dL (2.5-5.0); Potassium 3.8 mmol/L (3.5-5.0); eGFR CKD-EPI 96.8 (>60)
[2024-07-17] MEDS: Senna TAB 8.6 mg TAB PO SCH (12:40)
[2024-07-17] MEDS ORDERED: Albuterol HFA INHALER 8 gm MDI INH PRN (16:37)
[2024-07-18 06:19] LABS: ABS Eosinophils 0.2 10^3/uL (0.0-0.5); ABS Lymphocytes 1.9 10^3/uL (1.0-4.8); ABS Monocytes 0.4 10^3/uL (0.0-1.1); Eosinophil % 3.5 %; Hematocrit 27.9 % (38-53); Hemoglobin 9.6 g/dL (13.2-16.3); Lymphocyte % 33.6 %; Mean Corpuscular Hgb Conc 34.3 g/dL (31-36); Mean Corpuscular Volume 87.4 fL (80-97); Mean Platelet Volume 7.8 fL (7.5-11.2); Platelet Count 257 10^3/uL (150-450); Red Blood Count 3.19 10^6/uL (4.06-5.63); Red Cell Distribution Width 15.9 % (12-17); White Blood Count 5.6 10^3/uL (3.6-10.2)
[2024-07-18 06:52] LABS: Calcium 8.6 mg/dL (8.6-10.3); Creatinine, Serum 0.68 mg/dL (0.67-1.17); Magnesium 1.8 mg/dL (1.9-2.7); Phosphorus 3.9 mg/dL (2.5-5.0); Potassium 3.7 mmol/L (3.5-5.0); eGFR CKD-EPI 96.3 (>60)
[2024-07-18] MEDS: KCL 20 MEQ/100 ML IVPREMIX 20 MEQ/100 ML BAG IV ONE (07:38)
[2024-07-18] MEDS: Magnesium Sulfate 2 gm BAG 2 GM/50 ML BAG IVPB ONE (08:49)
[2024-07-18] MEDS: Potassium Chloride LIQUID 20 MEQ/15 ML LIQUID PO ONE (08:51)
[2024-07-18] MEDS: Potassium Chlor 20 meq TAB.ER PO ONE (10:01)
[2024-07-18] MEDS ORDERED: Acetaminoph/Cod 120/12 mg LIQ 5 ML UDC PO PRN (13:13)
[2024-07-18] MEDS: PREGABALIN PO SCH (16:51)
[2024-07-19 06:49] LABS: ABS Eosinophils 0.2 10^3/uL (0.0-0.5); ABS Lymphocytes 1.7 10^3/uL (1.0-4.8); ABS Monocytes 0.6 10^3/uL (0.0-1.1); ABS Neutrophils 5.3 10^3/uL (1.5-7.6); Eosinophil % 2.5 %; Hematocrit 26.6 % (38-53); Lymphocyte % 21.7 %; Mean Corpuscular Hemoglobin 29.8 pg (27-33); Mean Corpuscular Hgb Conc 33.7 g/dL (31-36); Mean Corpuscular Volume 88.3 fL (80-97); Mean Platelet Volume 8.3 fL (7.5-11.2); Platelet Count 260 10^3/uL (150-450); Red Blood Count 3.01 10^6/uL (4.06-5.63); Red Cell Distribution Width 15.4 % (12-17); White Blood Count 7.9 10^3/uL (3.6-10.2)
[2024-07-19 07:08] LABS: Calcium 8.2 mg/dL (8.6-10.3); Creatinine, Serum 0.69 mg/dL (0.67-1.17); Magnesium 1.9 mg/dL (1.9-2.7); Phosphorus 3.5 mg/dL (2.5-5.0); Potassium 3.9 mmol/L (3.5-5.0); eGFR CKD-EPI 95.9 (>60)
[2024-07-19] MEDS: Sucralfate 1 gm SUSP 1 GM/10 ML UDC PO SCH (09:13)
[2024-07-19] MEDS ORDERED: Pantoprazole VIAL 40 MG VIAL IV SCH ×2 (09:34→21:00)
[2024-07-19] MEDS ORDERED: Enoxaparin 40 MG/0.4 ML SYR SUBCUT SCH (10:00)
[2024-07-19] MEDS: Pantoprazole VIAL 40 MG VIAL IV SCH (12:20)
[2024-07-19] MEDS: Enoxaparin 40 MG/0.4 ML SYR SUBCUT SCH (12:24)
[2024-07-19] MEDS: Ferric Gluconate IV 250 MG in NS 0.9% 250 ml 200 ML IVPB SCH (14:57)
[2024-07-19 15:26] LABS: Hematocrit 27.9 % (38-53); Hemoglobin 9.2 g/dL (13.2-16.3)
[2024-07-20 07:19] LABS: ABS Basophils 0.1 10^3/uL (0.0-0.1); ABS Eosinophils 0.1 10^3/uL (0.0-0.5); ABS Lymphocytes 1.6 10^3/uL (1.0-4.8); ABS Monocytes 0.6 10^3/uL (0.0-1.1); Eosinophil % 1.6 %; Hematocrit 27.6 % (38-53); Hemoglobin 9.3 g/dL (13.2-16.3); Lymphocyte % 19.5 %; Mean Corpuscular Hemoglobin 29.7 pg (27-33); Mean Corpuscular Hgb Conc 33.6 g/dL (31-36); Mean Corpuscular Volume 88.3 fL (80-97); Mean Platelet Volume 8.8 fL (7.5-11.2); Platelet Count 257 10^3/uL (150-450); Red Blood Count 3.12 10^6/uL (4.06-5.63); Red Cell Distribution Width 15.7 % (12-17); White Blood Count 8.5 10^3/uL (3.6-10.2)
[2024-07-20 07:26] LABS: Calcium 8.8 mg/dL (8.6-10.3); Creatinine, Serum 0.66 mg/dL (0.67-1.17); Magnesium 1.8 mg/dL (1.9-2.7); Potassium 3.7 mmol/L (3.5-5.0); eGFR CKD-EPI 97.2 (>60)
[2024-07-20] MEDS: Magnesium Sulfate 2 gm BAG 2 GM/50 ML BAG IVPB ONE (09:13)
[2024-07-21 06:46] LABS: ABS Basophils 0.1 10^3/uL (0.0-0.1); ABS Eosinophils 0.2 10^3/uL (0.0-0.5); ABS Lymphocytes 1.9 10^3/uL (1.0-4.8); ABS Monocytes 0.6 10^3/uL (0.0-1.1); ABS Neutrophils 5.8 10^3/uL (1.5-7.6); Eosinophil % 1.8 %; Hematocrit 26.4 % (38-53); Lymphocyte % 22.6 %; Mean Corpuscular Hemoglobin 29.9 pg (27-33); Mean Corpuscular Hgb Conc 34.2 g/dL (31-36); Mean Corpuscular Volume 87.4 fL (80-97); Mean Platelet Volume 8.5 fL (7.5-11.2); Platelet Count 263 10^3/uL (150-450); Red Blood Count 3.01 10^6/uL (4.06-5.63); Red Cell Distribution Width 15.3 % (12-17); White Blood Count 8.6 10^3/uL (3.6-10.2)
[2024-07-21 07:02] LABS: Calcium 8.4 mg/dL (8.6-10.3); Creatinine, Serum 0.74 mg/dL (0.67-1.17); Magnesium 2.1 mg/dL (1.9-2.7); Potassium 3.9 mmol/L (3.5-5.0); eGFR CKD-EPI 93.9 (>60)
[2024-07-21] MEDS: Enoxaparin 60 MG/0.6 ML SYR SUBCUT SCH (08:55)
[2024-07-21] MEDS: Senna TAB 8.6 mg TAB PO PRN (12:21)
[2024-07-22] MEDS: Ferric Gluconate IV 250 MG in NS 0.9% 250 ml 200 ML IVPB SCH (06:17)
[2024-07-22 09:24] LABS: ABS Basophils 0.1 10^3/uL (0.0-0.1); ABS Eosinophils 0.3 10^3/uL (0.0-0.5); ABS Lymphocytes 2.4 10^3/uL (1.0-4.8); ABS Monocytes 0.5 10^3/uL (0.0-1.1); ABS Neutrophils 4.7 10^3/uL (1.5-7.6); ABS Nucleated RBC 0.01 10^3/ul; Eosinophil % 4.2 %; Hematocrit 33.2 % (38-53); Lymphocyte % 30.3 %; Mean Corpuscular Hemoglobin 29.5 pg (27-33); Mean Corpuscular Hgb Conc 33.1 g/dL (31-36); Mean Corpuscular Volume 89.1 fL (80-97); Mean Platelet Volume 8.3 fL (7.5-11.2); Nucleated Red Blood Cells % 0.1 %/100WBC (0.0-0.8); Platelet Count 300 10^3/uL (150-450); Red Blood Count 3.72 10^6/uL (4.06-5.63); Red Cell Distribution Width 16.3 % (12-17); White Blood Count 8.1 10^3/uL (3.6-10.2)
[2024-07-22 09:25] VITALS: BP 132/69
[2024-07-22 10:13] LABS: Creatinine, Serum 0.64 mg/dL (0.67-1.17); Potassium 3.7 mmol/L (3.5-5.0); eGFR CKD-EPI 98.1 (>60)
== END 2024-07-22 11:30 | disposition home or self-care (01) | DRG 377 ==
LOC: ED 07:35 → SUATTDRO 08:58 → EDHOLD 08:58 → ICU 09:45 → MED 07-18 17:44
PROVIDERS: ADMIT Student in an Organized Health Care Education/Training Program; ATTEND Internal Medicine